=== PATIENT | female | born 1960 | race Caucasian/White ===

== ENCOUNTER 2019-05-22 13:13 | Inpatient (IN) | payer BC, SELFPAY ==
[2019-05-22] VITALS (8 sets, daily range): BP systolic 120–180; BP diastolic 78–95; PULSE 67–74; RESP 16–19; TEMP 36.5–36.6; O2SAT 94–100; BMI 34.3
--- NOTE | 2019-05-22 13:47 | ED_ITS ---
Entered by Jackie Larry, acting as scribe for Bob Recinos DO May 22, 2019 13:13 HPI - Abdominal Pain General: Chief Complaint: Abdominal Pain Stated Complaint: abd pain/N/V Time Seen by Provider: 05/22/19 13:47 Source: patient and family Mode of arrival: ambulatory Limitations: no limitations History of Present Illness: HPI narrative: 58 yo female presents with abdomen pain. pt states this started this morning. pt has had nausea and vomiting. pt states she didnt think she has food poision because her and her daughter ate the same food. pt denies any other symptoms at this time. pt states movement makes this worse and nothing makes the pain better. No hematemesis or coffee-ground emesis MD elicited complaint: abdominal pain Pertinent past history: none Onset (ago): day(s) (this morning) Pain Consistency: constant Location: Epigastric, LUQ and RUQ Severity: moderate Quality: sharp Radiation: none Exacerbating factors: movement Relieving factors: nothing Associated Symptoms: Reports nausea and vomiting; Denies chills, dysuria, fever(s), hematuria and syncope Review of Systems General: Reports: 10 or more systems reviewed and unremarkable except in HPI and below Const: Denies: fever, chills, body aches, fatigue, malaise or night sweats Eyes: Denies: change in vision or blurry vision ENMT: Denies: throat pain, oral sores/lesions, dental pain, nasal discharge or nasal congestion Card: Denies: chest pain, palpitations, irregular heart rhythm, edema, syncope , shortness of breath on exertion, shortness of breath when lying down or leg pain with exertion Resp: Denies: shortness of breath, productive cough, non-productive cough or wheezing GI: Reports: abdominal pain, nausea and vomiting : Denies: flank pain, painful urination, urinary frequency, urinary urgency, urinary incontinence or blood in urine Musc: Denies: neck pain, back pain, extremity pain, extremity swelling, joint pain or joint swelling Skin/Breast: Denies: rash, itching or redness Neuro: Denies: headache, numbness in extremities, weakness in extremities, changes in sensation, lack of coordination, difficulty walking, frequent falls, dizziness, vertigo or confusion Psych: Denies: anxiety, depression, loss of interest, visual hallucinations, auditory hallucinations, suicidal ideation or homicidal ideation Endo: Denies: excessive urination, excessive thirst, tired all the time or cold intolerance Ramon/Lymph: Denies: easy bruising, easy bleeding, petechiae, enlarged lymph nodes or tender lymph nodes PFSH ED PFSH: Medical History (Updated 05/23/19 @ 15:06 by Bob Recinos DO) Hypothyroidism Post-menopause Pre-diabetes Surgical History H/O: hysterectomy History of 2 sections Social History Smoking and tobacco status: never smoked Physical Exam Const: COMMON NORMALS: average body habitus, oriented x3 and alert GENERAL APPEARANCE: cooperative, comfortable, well kempt and well developed NUTRITIONAL APPEARANCE: obese ORIENTATION/CONSCIOUSNESS: Yes awake, Yes oriented to person and Yes oriented to place HENMT: COMMON NORMALS: normocephalic, head/scalp atraumatic, EAC's normal, TM's normal bilaterally, external nose normal, moist oral mucous membranes and oropharynx normal HEAD & SCALP: normocephalic and atraumatic NOSE: external nose normal EXTERNAL AUDITORY CANAL: EAC's normal TYMPANIC MEMBRANE: TM's normal bilaterally MOUTH: oral and palatal mucosa normal, lip normal and tongue normal THROAT: posterior oropharynx normal and tonsils normal Eye: COMMON NORMALS: PERRL, EOMs intact bilaterally, conjunctivae normal and no scleral icterus CONJUNCTIVA: Yes conjunctivae normal PUPIL: Yes PERRL Neck/C-Spine: COMMON NORMALS: full ROM, no lymphadenopathy, supple, no meningeal signs and thyroid normal THYROID: thyroid normal and asymmetrical Lymph: LYMPHATIC: no lymphadenopathy noted Resp: COMMON NORMALS: normal respiratory effort, no retractions, no use of accessory muscles and clear to auscultation bilaterally AUSCULTATION: clear to auscultation bilaterally Cardio: COMMON NORMALS: regular rate and regular rhythm RATE: regular rate RHYTHM: regular rhythm HEART SOUNDS: no murmurs : COMMON NORMALS: Yes no CVA tenderness BLADDER/KIDNEY EXAM: Yes no CVA tenderness Back/Pelvis: COMMON NORMALS: no CVA tenderness LUMBAR SPINE/LOWER BACK: Yes normal to inspection Extremity: COMMON NORMALS: no clubbing, cyanosis or edema, no calf tenderness and no pedal edema Neuro: COMMON NORMALS: oriented x3 SENSORIUM/ORIENTATION: Yes alert, Yes or iented to person and Yes oriented to place MENINGEAL SIGNS: Yes no meningeal signs Psych: APPEARANCE: Yes well kempt Skin: COMMON NORMALS: no rashes or lesions noted and skin turgor normal GENERAL SKIN EXAM: no rashes or lesions noted and turgor normal Course Vital Signs: Vital signs: Vital Signs Temperature 97.4 F L 05/23/19 14:56 Pulse Rate 72 05/23/19 14:56 Respiratory Rate 18 05/23/19 14:56 Blood Pressure 151/88 05/23/19 14:56 Pulse Oximetry 99 05/23/19 14:56 MDM - Abdominal Pain Lab Data: Labs: Lab Results 05/22/19 05/22/19 05/22/19 Range/Units 13:56 14:41 14:47 WBC 7.8 (4.0-10.0) 10^3/ uL RBC 4.66 (4.1-5.3) 10^6/u L Hgb 12.1 (11.5-15.3) g/dL Hct 39.8 (37.0-47.0) % MCV 85.4 (81-99) fL MCH 26.0 L (28.0-34.0) pg MCHC 30.4 (30.0-36.0) g/dL RDW 13.4 (12.1-15.1) % Plt Count 263 (130-400) 10^3/c mm MPV 10.6 H (7.4-10.4) fL Neut % (Auto) 83.0 % Lymph % (Auto) 12.7 % [place] % (Auto) 3.5 % Eos % (Auto) 0.1 % Baso % (Auto) 0.3 % Neut # (Auto) 6.5 (1.8-7.7) 10^3/u L Lymph # (Auto) 1.0 (0.8-4.8) 10^3/u L [place] # (Auto) 0.3 (0.2-0.9) 10^3/u L Eos # (Auto) 0.0 (0.0-0.8) 10^3/u L Baso # (Auto) 0.0 (0.0-0.1) 10^3/u L Nucleated RBC % (a uto) 0 % Nucleated RBCs # 0.0 /100WBC Sodium 138 (136-145) mmol/L Potassium 4.0 (3.5-5.1) mmol/L Chloride 102 (98-107) mmol/L Carbon Dioxide 21 L (22-29) mmol/L Anion Gap 19.0 (5-19) BUN 14 (6-20) mg/dL Creatinine 0.7 (0.5-0.9) mg/dL GFR Calculation 86.2 L (90-130) mL/min Glucose 121 H (65-115) mg/dL Calcium 9.0 (8.5-10.5) mg/dL Total Bilirubin 0.2 (0.15-1.2) mg/dL AST 103 H (0-32) U/L ALT 73 H (0-33) U/L Alkaline Phosphata se 101 (35-105) IU/L Total Protein 6.6 (6.6-8.7) g/dL Albumin 4.2 (3.5-5.2) g/dL Globulin 2.4 (1.3-4.6) g/dL Lipase 3281 H (13-60) U/L Urine Color (Yellow) Urine Appearance (CLEAR) Urine pH (5-7) Ur Specific Gravit y (1.005-1.030) Urine Protein (Negative) Urine Glucose (UA) (Normal) Urine Ketones (Negative) Urine Occult Blood (Negative) Urine Nitrate (Negative) Urine Bilirubin (NEGATIVE) Urine Urobilinogen (Negative) mg/dL Ur Leukocyte Joleen ase (Negative) Urine RBC (0-2) /hpf Urine WBC (0-5) /hpf Ur Squamous Epith Cells (0-5) Urine Bacteria (NONE) Influenza Type A A g Negative (Negative) POC Influenza B Ag Negative (Negative) 05/22/19 Range/Units 16:51 WBC (4.0-10.0) 10^3/ uL RBC (4.1-5.3) 10^6/u L Hgb (11.5-15.3) g/dL Hct (37.0-47.0) % MCV (81-99) fL MCH (28.0-34.0) pg MCHC (30.0-36.0) g/dL RDW (12.1-15.1) % Plt Count (130-400) 10^3/c mm MPV (7.4-10.4) fL Neut % (Auto) % Lymph % (Auto) % [place] % (Auto) % Eos % (Auto) % Baso % (Auto) % Neut # (Auto) (1.8-7.7) 10^3/u L Lymph # (Auto) (0.8-4.8) 10^3/u L [place] # (Auto) (0.2-0.9) 10^3/u L Eos # (Auto) (0.0-0.8) 10^3/u L Baso # (Auto) (0.0-0.1) 10^3/u L Nucleated RBC % (a uto) % Nucleated RBCs # /100WBC Sodium (136-145) mmol/L Potassium (3.5-5.1) mmol/L Chloride (98-107) mmol/L Carbon Dioxide (22-29) mmol/L Anion Gap (5-19) BUN (6-20) mg/dL Creatinine (0.5-0.9) mg/dL GFR Calculation (90-130) mL/min Glucose (65-115) mg/dL Calcium (8.5-10.5) mg/dL Total Bilirubin (0.15-1.2) mg/dL AST (0-32) U/L ALT (0-33) U/L Alkaline Phosphata se (35-105) IU/L Total Protein (6.6-8.7) g/dL Albumin (3.5-5.2) g/dL Globulin (1.3-4.6) g/dL Lipase (13-60) U/L Urine Color Yellow (Yellow) Urine Appearance Cloudy (CLEAR) Urine pH 7 (5-7) Ur Specific Gravit y 1.015 (1.005-1.030) Urine Protein Neg (Negative) Urine Glucose (UA) Norm (Normal) Urine Ketones 1+ H (Negative) Urine Occult Blood Neg (Negative) Urine Nitrate Negative (Negative) Urine Bilirubin Neg (NEGATIVE) Urine Urobilinogen Norm (Negative) mg/dL Ur Leukocyte Joleen ase Negative (Negative) Urine RBC None (0-2) /hpf Urine WBC 55-80 H (0-5) /hpf Ur Squamous Epith Cells 5-10 H (0-5) Urine Bacteria 2+ H (NONE) Influenza Type A A g (Negative) POC Influenza B Ag (Negative) Discharge Plan Discharge Patient Disposition: Admitted As Inpatient Admit Provider: Isabel Allan Clinical Impression: Acute pancreatitis, Hypothyroidism Condition: Stable Interventions: ED Discharge Assessment Last Done: 05/22/19 18:46 Discharge Date/Time: 05/22/19 19:02 Coding Level of Care Code ED Change Room Attendant for Chg Fwd Exam Comprehensive The documentation recorded by the Laron mac Bridget Annette, accurately reflects the service I personally performed and the decisions made by Jorje watt Curtis L, May 22, 2019 13:13
[2019-05-22] MEDS: ondansetron 2 mg/ML SDV 2 mL 4 MG IVP ×2 (14:03→15:25)
[2019-05-22] MEDS: sodium chloride 0.9% 1,000 ML 999 ML IV ×3 (14:03→17:34)
[2019-05-22 14:37] LABS: Basophils % 0.3 %; Eosinophils % 0.1 %; Hematocrit 39.8 % (37.0-47.0); Hemoglobin 12.1 g/dL (11.5-15.3); Lymphocytes % 12.7 %; Mean Corpuscular HGB Conc 30.4 g/dL (30.0-36.0); Mean Corpuscular Volume 85.4 fL (81-99); Mean Platelet Volume 10.6 fL (7.4-10.4); Monocytes # 0.3 10^3/uL (0.2-0.9); Monocytes % 3.5 %; Neutrophils # 6.5 10^3/uL (1.8-7.7); Nucleated Red Blood Cells % 0 %; Platelet Count 263 10^3/cmm (130-400); Red Blood Count 4.66 10^6/uL (4.1-5.3); Red Cell Distribution Width 13.4 % (12.1-15.1); White Blood Count 7.8 10^3/uL (4.0-10.0)
[2019-05-22] MEDS: lidocaine 2% viscous 15 ML, aluminum-mag hydrox-simethicon 30 ML, sucralfate oral liq 1 GM PO (14:57)
[2019-05-22 15:13] LABS: Alanine Aminotransferase 73 U/L (0-33); Albumin Level 4.2 g/dL (3.5-5.2); Alkaline Phosphatase 101 IU/L (35-105); Aspartate Amino Transferase 103 U/L (0-32); Blood Urea Nitrogen 14 mg/dL (6-20); Carbon Dioxide 21 mmol/L (22-29); Chloride 102 mmol/L (98-107); Creatinine Clr Calc Pharmacy 96.7364; Globulin 2.4 g/dL (1.3-4.6); Glomerular Filtration Rate 86.2 mL/min (90-130); Glucose 121 mg/dL (65-115); Sodium 138 mmol/L (136-145); Total Bilirubin 0.2 mg/dL (0.15-1.2); Total Protein 6.6 g/dL (6.6-8.7)
[2019-05-22] MEDS: morphine 4 mg/mL SDV 1 mL IVP ×2 (15:25→18:57)
[2019-05-22 15:26] LABS: Lipase 3281 U/L (13-60)
--- NOTE | 2019-05-22 15:32 | CTR_ITS ---
PROCEDURE INFORMATION: Exam: CT Abdomen And Pelvis With Contrast Exam date and time: 05/22/2019 3:51 PM Age: 58 years old Clinical indication: Abdominal pain; Localized; Upper; Additional info: Abd pain TECHNIQUE: Imaging protocol: Computed tomography of the abdomen and pelvis with intravenous contrast. Total DLP: 1750.06 mGy-cm Radiation optimization: All CT scans at this facility use at least one of these dose optimization techniques: automated exposure control; mA and/or kV adjustment per patient size (includes targeted exams where dose is matched to clinical indication); or iterative reconstruction. Contrast material: OMNIPAQUE 300; Contrast volume: 95 ml; Contrast route: IV; COMPARISON: No relevant prior studies available. FINDINGS: Liver: There is a diffuse decrease in hepatic parenchymal density, consistent with mild fatty infiltration. There is no focal abnormality within the liver. Gallbladder and bile ducts: The gallbladder is normal. Pancreas: There may be some mild haziness in the pancreatic fat and one could not exclude mild pancreatitis. This is not a definite finding and correlation with clinical and laboratory findings is suggested. Spleen: The spleen is normal. Adrenals: The adrenal glands are normal. Kidneys and ureters: The kidneys are normal. There is no evidence of hydronephrosis. There is no evidence of renal or ureteral calcifications. Stomach and bowel: There is no evidence of colitis/diverticulitis. There is no evidence of intestinal obstruction. Appendix: Not identified Intraperitoneal space: There is no evidence of free intraperitoneal fluid. Vasculature: Unremarkable. No abdominal aortic aneurysm. Lymph nodes: Unremarkable. No enlarged lymph nodes. Bladder: Urinary bladder is unremarkable. Reproductive: There has been a hysterectomy. Bones/joints: Unremarkable. No acute fracture. Soft tissues: Unremarkable. Other findings: There may be a Bartholin's gland cyst on the left. This is not fully imaged. CT/CT abdomen pelvis w con* [id number] IMPRESSION: Question of possible mild pancreatitis. Radiation Dose CTDIVOL = (mGy): DLP = 1750.06 (mGy-cm)
[2019-05-22 16:06] LABS: Influenza A by IFA Negative (Negative)
[2019-05-22 16:07] LABS: Influenza B by IFA Negative (Negative)
[2019-05-22] MEDS: iohexol 300 mg/mL 100 mL Btl IV (16:38)
[2019-05-22] MEDS: piperacillin-tazobactam 3.375 GM in sodium chloride 0.9% (plus) 50 ML IV (16:49)
[2019-05-22 17:00] LABS: Add Urine Microscopic? YES; Bilirubin Urine Neg (NEGATIVE); Blood Urine Neg (Negative); Glucose Urine UA Norm (Normal); Ketones Urine 1+ (Negative); Leukocyte Esterase Urine Negative (Negative); Nitrate Urine Negative (Negative); Protein Urine Neg (Negative); Specific Gravity, Urine 1.015 (1.005-1.030); Urine Appearance Cloudy (CLEAR); Urine Color Yellow (Yellow); Urobilinogen Urine Norm (Negative); pH Urine 7 (5-7)
[2019-05-22 17:09] LABS: Bacteria Urine 2+; WBC Urine 55-80 /hpf (0-5)
[2019-05-22 17:11] LABS: Add Urine Culture? Yes
--- NOTE | 2019-05-22 20:23 | XR_ITS ---
WS: [id number] XR chest 1V portable [id number] REASON FOR EXAM: r/o pleural effusion FINDINGS: The cardiac silhouette isn't enlarged. The costophrenic angles were normal. There is no definite effusion seen. The lung cisneros are well aerated. No pneumonia or pulmonary edema. XR/XR chest 1V portable [id number] IMPRESSION: No active cardiopulmonary changes. No definite pleural effusion.
--- NOTE | 2019-05-22 20:28 | P.HP_ITS ---
Providers/Chief Complaint Admitting Physician: Isabel Allan MD Primary Care Provider: Isela Mcgrath Chief Complaint: abd and back pain History of Present Illness Aimee Gale is a 58 year old female with PMH hypothyroidism, menopause on HRT with estrogen, pre DM in her usual state of health until this morning at 2 am when she woke up with severe abdominal pain in the epigastric region along with nausea and vomiting. 9/10 intensity, radiation to back+, no diarrhea. No similar past history. Presented to Ed with above complaints. Diagnostics significant for lipase >[address] abdomen with mild pancreatitis. No h/o alcohol consumption. previously diagnosed with pre DM, started on Metformin, but patient stopped taking one year ago. No h/o dyslipidemia. Consumed shrimp and steak one night prior to admission. Review of Systems General: Reports: 10 or more systems reviewed and unremarkable except in HPI and below Const: Denies: fever, chills or body aches Eyes: Denies: change in vision, blurry vision or photophobia ENMT: Reports: hoarseness; Denies: throat pain, enlarged tonsils, painful swallowing or nasal congestion Card: Denies: chest pain, palpitations, irregular heart rhythm, edema, swelling of feet/ankles, lightheadedness, pre-syncope, shortness of breath on exertion or shortness of breath when lying down Resp: Denies: shortness of breath, productive cough, non-productive cough, wheezing, stridor, pain on inspiration, change in phlegm color, coughing up blood or chest congestion GI: Reports: abdominal pain, nausea and vomiting; Denies: vomiting blood, coffee grounds in vomit, difficulty swallowing, heartburn/indigestion, diarrhea, constipation, cramping, change in stool character, blood in stool or black tarry stool : Denies: flank pain, difficulty urinating, painful urination, urinary frequency, urinary urgency, urinary hesitancy or blood in urine Musc: Denies: neck pain, back pain, extremity pain, joint swelling, joint warmth or deformity Neuro: Denies: headache, numbness in extremities, weakness in extremities, changes in sensation, difficulty walking, frequent falls, dizziness, vertigo, behavioral changes, slurred speech or seizure-like activity Psych: Denies: anxiety, depression, suicidal ideation or homicidal ideation Endo: Denies: excessive urination, excessive thirst, tired all the time, cold intolerance or hot flashes Ramon/Lymph: Denies: easy bruising or easy bleeding Medications/Allergies Home Medications Medication Instructions Recorded Confirmed Last Taken Type Azo Urinary Pain Relief 2 tab PO PRN 05/22/19 05/22/19 05/22/19 History Vitamin D3 1 tab PO DAILY 05/22/19 05/22/19 05/19/19 History cyclobenzaprine 10 mg PO BID PRN 05/22/19 05/22/19 05/22/19 History estradiol 1 mg PO DAILY 05/22/19 05/22/19 05/19/19 History levothyroxine 25 mcg PO DAILY 05/22/19 05/22/19 05/19/19 History Allergies Allergy/AdvReac Type Severity Reaction Status Date / Time acetaminophen [From Percocet] Allergy ALGY-Rash Verified 05/22/19 13:36 oxycodone [From Percocet] Allergy ALGY-Rash Verified 05/22/19 13:36 propoxyphene Allergy ALGY-Rash Verified 05/22/19 13:36 [From Darvocet-N] tramadol Allergy ADR-Itching Verified 05/22/19 13:36 PFSH Acute PFSH: Medical History (Updated 05/22/19 @ 22:39 by Isabel Allan MD) Hypothyroidism Post-menopause Pre-diabetes Surgical History H/O: hysterectomy History of 2 sections Social History Smoking and tobacco status: never smoked Vitals/I&O/Wt Last Vital Signs Temp 97.8 F 05/22/19 13:31 Pulse 74 05/22/19 18:46 Resp 16 05/22/19 18:57 BP 151/81 05/22/19 18:46 Pulse Ox 97 05/22/19 18:46 05/22/19 05/22/19 05/22/19 06:59 14:59 22:59 Intake Total 3050 / 3050 Balance 3050 / 3050 Weight last 48 hrs Weight 90.718 kg Physical Exam Narrative: EXAM NARRATIVE: GEN: Awake, alert and oriented, no acute distress CVS: S1S2 N RS: CTA B/L except crackles over RUL Abd: Soft, nt/nd , bs+ RENEWALS REPRESENTATIVE: no focal neuro deficits Data : 05/22/19 13:56 05/22/19 14:47 A&P Assessment and plan (1) Acute pancreatitis: Status: Acute Code(s): K85.90 - Acute pancreatitis without necrosis or infection, unspecified (2) Hypothyroidism: Status: Acute Code(s): E03.9 - Hypothyroidism, unspecified Additional A&P Information Admit to med/surg in view of pancreatitis IVF NS @ 125cc/hr Bowel rest, NPO Morphine and toradol prn for pain control check serum alcohol level, triglycerides, calcium and TSH to r/o etiology NO GB stones or CBD dilatation on CT abdomen CXR to r/o pleueral effusion Blood culture with am labs No gross signs of infection at this time, therefore holding off on antibiotics UA with 55-80 WBCs but patient denies current urinary symptoms Continue levothyroxine for hypothyroidism PPX: lovenox Code status; Full code Attestations Medical Necessity Statement*: anticipate > 2 midnight for management of pancreatitis Coding Level of Care Code Acute Research Quality Assurance Analyst for [facility] Fwd Diagnoses Acute pancreatitis K85.90 Hypothyroidism E03.9
[2019-05-22] MEDS: enoxaparin 40 mg/0.4 mL Syringe SUBCUT (21:12)
[2019-05-22] MEDS: sodium chloride 0.9% 1,000 ML 100 ML IV (21:13)
[2019-05-23 04:00] VITALS: BP 118/77; PULSE 77; RESP 18; TEMP 36.5; O2SAT 92
[2019-05-23 06:21] LABS: Basophils % 0.4 %; Eosinophils # 0.1 10^3/uL (0.0-0.8); Hematocrit 30.9 % (37.0-47.0); Hemoglobin 9.7 g/dL (11.5-15.3); Lymphocytes % 27.2 %; Mean Corpuscular HGB Conc 31.4 g/dL (30.0-36.0); Mean Corpuscular Volume 82.8 fL (81-99); Mean Platelet Volume 9.6 fL (7.4-10.4); Monocytes # 0.4 10^3/uL (0.2-0.9); Monocytes % 5.7 %; Neutrophils # 4.7 10^3/uL (1.8-7.7); Neutrophils % 65.6 %; Nucleated Red Blood Cells % 0 %; Platelet Count 241 10^3/cmm (130-400); Red Blood Count 3.73 10^6/uL (4.1-5.3); Red Cell Distribution Width 13.8 % (12.1-15.1); White Blood Count 7.2 10^3/uL (4.0-10.0)
[2019-05-23 06:35] LABS: Chol HDL Ratio 3.55 mg/dL (0.0-4.40); Cholesterol 174 mg/dL (0-200); HDL Cholesterol 49 mg/dL (60-100); LDL Cholesterol Calculated 91 mg/dL (50-129); LDL HDL Ratio 1.86 RATIO (0.00-3.22); Triglycerides 170 mg/dL (0-150)
[2019-05-23 06:56] LABS: Estmated Average Glucose 120; Hemoglobin A1C 5.8 % (4.0-6.0)
[2019-05-23 06:58] LABS: Alanine Aminotransferase 51 U/L (0-33); Albumin Level 3.7 g/dL (3.5-5.2); Alkaline Phosphatase 91 IU/L (35-105); Anion Gap 12.9 (5-19); Aspartate Amino Transferase 49 U/L (0-32); Blood Urea Nitrogen 12 mg/dL (6-20); Calcium 8.1 mg/dL (8.5-10.5); Carbon Dioxide 25 mmol/L (22-29); Chloride 107 mmol/L (98-107); Creatinine Clr Calc Pharmacy 96.7364; Glomerular Filtration Rate 86.2 mL/min (90-130); Glucose 106 mg/dL (65-115); Potassium 3.9 mmol/L (3.5-5.1); Sodium 141 mmol/L (136-145); Total Bilirubin 0.2 mg/dL (0.15-1.2); Total Protein 5.7 g/dL (6.6-8.7)
[2019-05-23 07:15] VITALS: BP 129/87; PULSE 73; RESP 20; TEMP 36.4; O2SAT 94
[2019-05-23] MEDS: sodium chloride 0.9% 1,000 ML 150 ML IV ×2 (07:26→13:44)
[2019-05-23] MEDS: ketorolac 30 mg/mL INJ IVP (08:14)
[2019-05-23] MEDS: levothyroxine 25 mcg Tablet PO (08:15)
[2019-05-23 10:51] VITALS: BP 137/85; PULSE 77; RESP 18; TEMP 36.7; O2SAT 92
[2019-05-23 14:31] LABS: Iron 66 ug/dL (37-145); Percent Saturation 28.6 % (20-50); Total Iron Binding Capacity 230 mcg/dl; Unsaturated Iron Binding 164 ug/dL (112-347)
[2019-05-23 14:56] VITALS: BP 151/88; PULSE 72; RESP 18; TEMP 36.3; O2SAT 99
[2019-05-23] MEDS: acetaminophen 325 mg Tablet 650 MG PO (15:18)
--- NOTE | 2019-05-23 18:16 | P.PN_ITS ---
Subjective Subjective: Interval history: This morning on examination patient is doing a lot better. She states her abdominal pain has improved. She denies having any nausea, vomiting, palpitations, chest pain. She states she is feeling hungry. She complains of mild headache which she attributes to caffeine withdrawal as she is used to having 2 to 3 cups of tea every day. She denies of using any herbal tea products. Vitals/I&O/Wt Last Vital Signs Temp 97.4 F L 05/23/19 14:56 Pulse 72 05/23/19 14:56 Resp 18 05/23/19 14:56 BP 151/88 05/23/19 14:56 Pulse Ox 99 05/23/19 14:56 05/23/19 05/23/19 05/23/19 06:59 14:59 22:59 Intake Total 1974 480 / 2455 Output Total 350 / 550 Balance -350 / 2500 1974 480 / 2455 Weight last 48 hrs Weight 90.718 kg Physical Exam Narrative: EXAM NARRATIVE: General: No acute distress, AO x3 HEENT: PERRLA, pupils bilaterally equal and reactive Chest: Normal vesicular breath sounds, no added sounds, equal good air entry bilaterally CVS: S1-S2 regular, no murmurs, no tachycardia, no gallops, no rubs Abdomen: Soft, tender in epigastric region, no organomegaly, bowel sounds present Neuro: No focal deficits, no facial deformity, AO x3, power 5/5 in all limbs Data : 05/23/19 05:23 05/23/19 05:23 Micro: Microbiology 05/23/19 05:23 Blood Culture - Preliminary Blood SPECIMEN COLLECTED 05/23/19 05:29 Blood Culture - Preliminary Blood SPECIMEN COLLECTED A&P Assessment and plan (1) Acute pancreatitis: Status: Acute Code(s): K85.90 - Acute pancreatitis without necrosis or infection, unspecified (2) Hypothyroidism: Status: Acute Code(s): E03.9 - Hypothyroidism, unspecified Additional A&P Information Pancreatitis: Unknown etiology. Continue with fluid at 125 cc/h. As patient symptoms are improving will advance the diet to clear liquid diet for lunch. If tolerates well can advance for full liquid diet. No gallstones or CBD dilation on CT abdomen. Alcohol levels negative, triglycer ides mildly elevated though not as elevated that could cause pancreatitis, calcium levels normal. As etiology is unknown it could be because of a passed gallstone but not really sure for now. We will check [facility]EL[facility] profile. No signs of infection. Hypothyroidism: Continue with home dose of levothyroxine. Will check TSH tomorrow morning. Patient continues to do well can plan to discharge tomorrow morning on bland diet for 1 week to be advanced eventually. PPX: lovenox Code status; Full code Attestations Medical Necessity Statement*: for pancreatitis Time Spent in Patient Care: Greater than 35 minutes Coding Level of Care Code Acute Career And Technology Education Teacher for [facility] Fwd Diagnoses Acute pancreatitis K85.90 Hypothyroidism E03.9
[2019-05-23 19:34] VITALS: BP 148/93; PULSE 66; RESP 22; TEMP 36.6; O2SAT 96
[2019-05-23] MEDS: enoxaparin 40 mg/0.4 mL Syringe SUBCUT (21:14)
[2019-05-23] MEDS: sodium chloride 0.9% 1,000 ML 100 ML IV (21:15)
[2019-05-24] VITALS: BP 141/85; PULSE 80; RESP 20; TEMP 36.4; O2SAT 96
[2019-05-24 04:00] VITALS: BP 141/86; PULSE 78; RESP 18; TEMP 36.7; O2SAT 96
[2019-05-24 07:04] LABS: Basophils % 0.5 %; Eosinophils # 0.1 10^3/uL (0.0-0.8); Eosinophils % 1.8 %; Hematocrit 31.2 % (37.0-47.0); Hemoglobin 9.7 g/dL (11.5-15.3); Lymphocytes # 1.7 10^3/uL (0.8-4.8); Lymphocytes % 29.8 %; Mean Corpuscular HGB Conc 31.1 g/dL (30.0-36.0); Mean Corpuscular Hemoglobin 26.8 pg (28.0-34.0); Mean Corpuscular Volume 86.2 fL (81-99); Mean Platelet Volume 9.5 fL (7.4-10.4); Monocytes # 0.4 10^3/uL (0.2-0.9); Monocytes % 6.6 %; Neutrophils # 3.4 10^3/uL (1.8-7.7); Neutrophils % 60.9 %; Nucleated Red Blood Cells % 0 %; Platelet Count 214 10^3/cmm (130-400); Red Blood Count 3.62 10^6/uL (4.1-5.3); Red Cell Distribution Width 13.5 % (12.1-15.1); White Blood Count 5.6 10^3/uL (4.0-10.0)
[2019-05-24 07:24] LABS: Alanine Aminotransferase 37 U/L (0-33); Albumin Level 3.1 g/dL (3.5-5.2); Alkaline Phosphatase 78 IU/L (35-105); Anion Gap 12.7 (5-19); Aspartate Amino Transferase 28 U/L (0-32); Blood Urea Nitrogen 10 mg/dL (6-20); Carbon Dioxide 24 mmol/L (22-29); Chloride 106 mmol/L (98-107); Creatinine Clr Calc Pharmacy 96.7364; Globulin 2.9 g/dL (1.3-4.6); Glomerular Filtration Rate 86.2 mL/min (90-130); Glucose 105 mg/dL (65-115); Lipase 224 U/L (13-60); Potassium 3.7 mmol/L (3.5-5.1); Sodium 139 mmol/L (136-145); Total Bilirubin 0.2 mg/dL (0.15-1.2)
[2019-05-24 07:43] VITALS: BP 143/85; PULSE 72; RESP 16; TEMP 36.7; O2SAT 98
[2019-05-24] MEDS: levothyroxine 25 mcg Tablet PO (08:03)
[2019-05-24] MEDS: acetaminophen 325 mg Tablet 650 MG PO (08:05)
[2019-05-24 11:19] VITALS: BP 146/92; PULSE 71; RESP 16; TEMP 36.5; O2SAT 96
[2019-05-24 12:40] LABS: Glucose Point of Care 98 mg/dL (70-110)
--- NOTE | 2019-05-24 13:14 | P.DS_ITS ---
Discharge Providers Date of Admission: 05/22/19 17:50 Date of Discharge: May 24, 2019 Attending Provider at Admission: Isabel Allan MD Attending Provider at Discharge: Hipolito Ocampo MD Primary Care Provider: Isela Mcgrath Diagnoses at Discharge Discharge Diagnosis (1) Acute pancreatitis: Status: Acute (2) Hypothyroidism: Status: Acute Reason for Visit Reason for Visit: Reason For Visit: abd and back pain Hospital Course Discharge Summary: Aimee Gale is a 58 year old female with PMH hypothyroidism, menopause on HRT with estrogen, pre DM in her usual state of health until this morning at 2 am when she woke up with severe abdominal pain in the epigastric region along with nausea and vomiting. 9/10 intensity, radiation to back+, no diarrhea. No similar past history. Presented to emergency department on May 22 with above complaints. Diagnostics significant for lipase >[address] abdomen with mild pancreatitis. No h/o alcohol consumption. previously diagnosed with pre DM, started on Metformin, but patient stopped taking one year ago. No h/o dyslipidemia. Consumed shrimp and steak one night prior to admission. Patient was admitted to the floors and started on IV fluids and kept n.p.o. overnight. Her CT abdomen was negative for any severe dilatation or gallbladder stones, alcohol levels are negative, triglycerides are mildly elevated though lipid panel is within normal limits along with calcium being normal as well. Patient's cause of pancreatitis is unknown and ROSANGELA profile has been sent as well though chances are very low. Any chances of infections were ruled out as well with a normal white count, no fever or any infiltration on the imaging. Patient responded well to the treatment and was able to tolerate clear liquid diet for more than 24 hours without any nausea or vomiting. Patient is been discharged in hemodynamically stable condition to follow-up with her primary care physician within next 7 to 10 days. Patient has been advised to advance her diet gradually. Patient is advised to take full liquid diet for next 2 days followed by a bland/brat diet for next 3 to 4 days and advance as tolerated. Physical Exam Narrative: EXAM NARRATIVE: General: No acute distress, AO x3 HEENT: PERRLA, pupils bilaterally equal and reactive Chest: Normal vesicular breath sounds, no added sounds, equal good air entry bilaterally CVS: S1-S2 regular, no murmurs, no tachycardia, no gallops, no rubs Abdomen: Soft, tender in epigastric region, no organomegaly, bowel sounds present Neuro: No focal deficits, no facial deformity, AO x3, power 5/5 in all limbs Discharge Data Data Completed and Pending: Completed Studies During Hospitalization Category Date Time Status CT abdomen pelvis w con* [id number] Stat Cat Scan 05/22/19 15:32 Completed XR chest 1V ellen ble [id number] Routine Exams 05/22/19 20:23 Completed Pending at discharge Category Date Time Status Blood Culture AM LABS Lab 05/23/19 05:23 Results [facility] ROSANGELA Profile R outine Lab 05/23/19 05:23 Received Urine Culture Sta t Lab 05/22/19 16:51 Results Labs from last 24 hours 05/24/19 05/24/19 05/24/19 11:17 06:48 06:48 WBC 5.6 RBC 3.62 L Hgb 9.7 L Hct 31.2 L MCV 86.2 MCH 26.8 L MCHC 31.1 RDW 13.5 Plt Count 214 MPV 9.5 Neut % (Auto) 60.9 Lymph % (Auto) 29.8 [place] % (Auto) 6.6 Eos % (Auto) 1.8 Baso % (Auto) 0.5 Neut # (Auto) 3.4 Lymph # (Auto) 1.7 [place] # (Auto) 0.4 Eos # (Auto) 0.1 Baso # (Auto) 0.0 Nucleated RBC % (a uto) 0 Nucleated RBCs # 0.0 Sodium 139 Potassium 3.7 Chloride 106 Carbon Dioxide 24 Anion Gap 12.7 BUN 10 Creatinine 0.7 GFR Calculation 86.2 L Glucose 105 POC Glucose 98 Calcium 8.0 L Ionized Calcium Me as Iron TIBC % Saturation Unsat Iron Binding Total Bilirubin 0.2 AST 28 ALT 37 H Alkaline Phosphata se 78 Total Protein 6.0 L Albumin 3.1 L Globulin 2.9 Lipase 224 H TSH 05/23/19 05/23/19 06:51 05:23 WBC RBC Hgb Hct MCV MCH MCHC RDW Plt Count MPV Neut % (Auto) Lymph % (Auto) [place] % (Auto) Eos % (Auto) Baso % (Auto) Neut # (Auto) Lymph # (Auto) [place] # (Auto) Eos # (Auto) Baso # (Auto) Nucleated RBC % (a uto) Nucleated RBCs # Sodium Potassium Chloride Carbon Dioxide Anion Gap BUN Creatinine GFR Calculation Glucose POC Glucose Calcium Ionized Calcium Me as 1.0 L Iron 66 TIBC 230 % Saturation 28.6 Unsat Iron Binding 164 Total Bilirubin AST ALT Alkaline Phosphata se Total Protein Albumin Globulin Lipase TSH 1.10 Vitals: Last Vital Signs Temp 97.7 F 05/24/19 11:19 Pulse 71 05/24/19 11:19 Resp 16 05/24/19 11:19 BP 146/92 05/24/19 11:19 Pulse Ox 96 05/24/19 11:19 Discharge Plan Discharge Patient Disposition: Home, Self-Care Condition: Stable Prescriptions: New acetaminophen 325 mg Tablet 650 mg PO Q4H PRN (Reason: Mild Pain Or Increase Temp) Qty: 20 RF: 0 Continued Azo Urinary Pain Relief 2 tab PO PRN RF: 0 cyclobenzaprine 10 mg tablet 10 mg PO BID PRN (Reason: Spasms) RF: 0 levothyroxine 25 mcg tablet 25 mcg PO DAILY RF: 0 estradiol 1 mg tablet 1 mg PO DAILY RF: 0 Vitamin D3 1 tab PO DAILY RF: 0 Discharge Orders: Discharge Order (Routine); Ordered 05/24/19 Ordered By: Hipolito Ocampo Referrals: Hong Bedolla, [employer] [Family Provider] - 2 weeks Discharge Diet: Advance as tolerated Discharge Activity: Resume usual activity Activity Restrictions/Additional Instructions: Full liquid diet for 2 days followed by brat diet for 3 to 4 days and then advance slowly as tolerated. Discharge Attestations Time Spent in Discharge Care*: greater than 30 min Specific Discharge Activities: Specific discharge activities: educating patient and evaluating patient/reviewing data Status at Discharge: Cognitive status at discharge: cognitively intact , Behavioral status at discharge: cooperative , Functional status at discharge: independent ambulation Overall status at discharge: patient is back to baseline Quality Metrics Clinical Quality Measures During this hospital stay, did patient experience: None Coding Level of Care Code Acute [employer] Supervisor for Abdoul Mendez Diagnoses Acute pancreatitis K85.90 Hypothyroidism E03.9
[2019-05-24 13:34] VITALS: BP 146/92; PULSE 71; RESP 16; TEMP 36.5; O2SAT 96
[2019-05-24 13:59] VITALS: BP 146/92; PULSE 71; RESP 16; TEMP 36.5; O2SAT 96
[2019-05-25 14:17] LABS: Anti-Double Strand DNA AB 1 IU/mL; Jo-1 Antibody <1.0 NEG AI (<1.0 NEG); SM/RNP Antibodies <1.0 NEG AI (<1.0 NEG); SS-B/LA IGG <1.0 NEG AI (<1.0 NEG); Scleroderma Ab(Scl-70) Ab <1.0 NEG AI (<1.0 NEG); Ss-A/Ro Igg <1.0 NEG AI (<1.0 NEG)
== END 2019-05-24 13:59 | disposition home or self-care (01) | DRG 440 ==
LOC: ER 13:47 → MEDSURG 18:22
PROVIDERS: Admitting Provider Student in an Organized Health Care Education/Training Program; Emergency Provider Family Medicine; Family Provider Nurse Practitioner Family; PCP Nurse Practitioner Family; Visit Provider Student in an Organized Health Care Education/Training Program
DX: K85.90 Acute pancreatitis without necrosis or infection, unspecified (principal); E03.9 Hypothyroidism, unspecified; Z79.890 Hormone replacement therapy; Z90.710 Acquired absence of both cervix and uterus
CPT/HCPCS: 12345; 36415; 36416; 71045; 74177; 80053; 80061; 81001; 82330; 82962; 83036; 83540; 83550; 83690; 84443; 85025; 86225; 86235; 87040; 87077; 87086; 87186; 87804; 96360; 96361; 96372; 96375; 99283; J1650; J1885; J2270; J2405; J2543; J7030; Q9967

== ENCOUNTER → 2019-05-27 11:56 | Outpatient (BNVA) | payer BC, SELFPAY | PROVIDERS: Family Provider Nurse Practitioner Family; PCP Nurse Practitioner Family; Visit Provider Nurse Practitioner Family | DX: D64.9 Anemia, unspecified (principal); K21.9 Gastro-esophageal reflux disease without esophagitis; J06.9 Acute upper respiratory infection, unspecified; J01.90 Acute sinusitis, unspecified | CPT/HCPCS: 80053; 81001; 82728; 85025 ==

== ENCOUNTER → 2019-05-31 11:44 | Outpatient (BNVA) | payer BC, SELFPAY | PROVIDERS: Family Provider Nurse Practitioner Family; PCP Nurse Practitioner Family; Visit Provider Nurse Practitioner Family | DX: D64.9 Anemia, unspecified (principal); K21.9 Gastro-esophageal reflux disease without esophagitis; J06.9 Acute upper respiratory infection, unspecified; J01.90 Acute sinusitis, unspecified; Z09 Encounter for follow-up examination after completed treatment for conditions other than malignant neoplasm; J01.40 Acute pansinusitis, unspecified; E03.9 Hypothyroidism, unspecified; Z79.899 Other long term (current) drug therapy | CPT/HCPCS: 82270 ==

== ENCOUNTER 2019-09-03 06:47 | Outpatient (CLI) | payer BC, SELFPAY ==
--- NOTE | 2019-09-03 06:59 | US_ITS ---
WS: [id number] RIGHT UPPER QUADRANT ULTRASOUND HISTORY: RUQ PAIN, S/P pancreatitis COMPARISON: None available. Liver: 16.9 cm in length. Liver is top normal size with mild hepatic steatosis. Coarsened echotexture with no mass or biliary dilatation. Gallbladder: Normally distended gallbladder with several stones. No pericholecystic fluid. No gallbla dder wall thickening. CBD: 0.3 cm Pancreas: Normal size and echogenicity. Right kidney: 10.8 cm in length. Normal echogenicity with no mass or hydronephrosis. Aorta and IVC: Unremarkable. No ascites. US/US abdomen limited [id number] IMPRESSION: 1. Cholelithiasis without acute cholecystitis. 2. Hepatic steatosis and hepatomegaly. 3. No evidence for acute pancreatitis.
== END 2019-09-03 06:48 | disposition home or self-care (01) ==
PROVIDERS: PCP Nurse Practitioner Family; Visit Provider Surgery
DX: R10.11 Right upper quadrant pain (principal); K80.20 Calculus of gallbladder without cholecystitis without obstruction; K76.0 Fatty (change of) liver, not elsewhere classified; R16.0 Hepatomegaly, not elsewhere classified
CPT/HCPCS: 76705

== ENCOUNTER 2019-09-16 06:00 | Day surgery (SDC) | payer BC, SELFPAY ==
[2019-09-15 13:47] VITALS: BMI 34.3
[2019-09-16] VITALS (10 sets, daily range): BP systolic 121–149; BP diastolic 67–91; PULSE 57–72; RESP 13–18; TEMP 36.1–36.6; O2SAT 94–99
[2019-09-16] MEDS: sodium chloride 0.9% 1,000 ML 30 ML IV (06:30)
--- NOTE | 2019-09-16 06:43 | W.PM.OPSUD ---
Surgery/Procedure H&P Update DATE OF PROCEDURE: September 16, 2019 DATE H&P PERFORMED: 09/07/19 H&P UPDATE INFORMATION: No changes to prior documentation PLANNED PROCEDURE: Operation Date: 09/16/19 07:15 Proposed Procedures p Laparoscopic Cholecystectomy(Not Applicable) - Presley Peck MD
--- NOTE | 2019-09-16 06:45 | ANES.PREANE2 ---
Pre-Anesthetic Assessment Pre-Anesthetic Assessment: Height/Weight: Height 1.63 m Weight 90.718 kg Temp Pulse Resp BP Pulse Ox 97.9 F 72 18 149/91 97 09/16/19 06:15 09/16/19 06:15 09/16/19 06:15 09/16/19 06:15 09/16/19 06:15 Preop Diagnosis: gallstones Proposed Procedure: Operation Date: 09/16/19 07:15 Proposed Procedures p Laparoscopic Cholecystectomy(Not Applicable) - Presley Peck MD Familial anesthetic complications: None Was Beta Sophia taken within 24 hours: N/A Last intake: Intake Last Liquid Date 09/15/19 Last Liquid Time 20:00 Last Solid Date 09/15/19 Last Solid Time 20:00 Social: Social History: No alcohol and No tobacco Exam: Pre-Anes Outpt Exam: alert, oriented x 3, clear to auscultation bilaterally and regular rate & rhythm Airway: Cervical ROM: WNL MP: 3 Dentition: Full Pulmonary: Pulmonary: None reported CV/HEM: CV/HEM: None reported : : None reported Hepatic: Hepatic: None reported GI: GI: GERD Comments: Hx of acute pancreatitis Metabolic: Metabolic: Morbid obesity and Thyroid Comments: Pre DM Musc/skel: Musc/skel: None reported Neuropsych: Neuropsych: None reported Anesthetic Plan: ASA status: 2 Anesthesia: General Risk of > 500 ml blood loss (7ml/kg in children): No Meds/Allergies Current Medications: Current Medications Generic Name Dose Route Start Last Admin Trade Name Freq PRN Reason Stop Dose Admin Sodium Chloride 1,000 mls @ 30 ml s/hr 09/16/19 06:00 09/16/19 06:30 Sodium Chloride 0.9% IV 09/17/19 05:59 30 mls/hr .Q24H WESTLEY Administration PFSH Anesthesia PFSH: Medical History (Updated 06/07/19 @ 10:44 by JAY JAY Hernandez) GERD (gastroesophageal reflux disease) H/O adenomatous polyp of colon Hypothyroidism Post-menopause Pre-diabetes Surgical History H/O: hysterectomy History of 2 sections Social History Smoking and tobacco status: never smoked Data Anesthesia Cardiac Studies: No Data to Display
[2019-09-16 06:56] LABS: Alanine Aminotransferase 13 U/L (0-33); Alkaline Phosphatase 67 IU/L (35-105); Aspartate Amino Transferase 16 U/L (0-32); Total Bilirubin 0.3 mg/dL (0.15-1.2)
--- NOTE | 2019-09-16 08:24 | P.OP_ITS ---
Operative Report Date of procedure: September 16, 2019 Pre-op Diagnosis: 1. Symptomatic cholelithiasis.2. Status post episode of pancreatitis. Post-op diagnosis: same Procedure Done: Laparoscopic cholecystectomy. Specimens removed/disposition: Gallbladder with contents. Surgeon: Presley Peck Anesthesia: General Estimated blood loss (mL): 10 Complications: None. Condition: stable Disposition: PACU Procedure: The patient was brought to the Operating Room and was placed in a supine position on the Operating Room table. General endotracheal anesthesia was induced. The abdomen was prepped and draped in a sterile fashion. A small vertical incision was carried out in the inferior aspect of the umbilicus. Blunt dissection was carried out down to the fascia, which was grasped with a Damien clamp. A stay suture of 0 Vicryl was placed on either side of the midline and the midline fascia was incised. The underlying peritoneum was opened bluntly and the Luci port was placed directly into the peritoneal cavity and was held in place with the inflatable balloon. The peritoneal cavity was insufflated with carbon dioxide. The laparoscope was used to inspect the abdominal cavity. The patient had some omental adhesions just below the umbilicus and slightly to the left side. No other gross abnormalities were initially noted. A 5 millimeter port was placed in the epigastrium under direct vision. Two 5-millimeter ports were placed on the right side of the abdomen under direct vision. The gallbladder was grasped and was elevated. The patient had adhesions along the entire fundus of the gallbladder down to and involving the infundibular region. These were all taken down with blunt dissection with a minimum of cautery to maintain hemostasis. Blunt dissection and hydrodissection were carried out in the infundibular region of the gallbladder and the cystic duct and cystic artery were identified. The gallbladder was partially removed from the liver bed using cautery and the spatula to confirm the anatomy before the structures were clipped and divided. The gallbladder was then removed from the liver bed using cautery and the spatula. After the gallbladder had been removed from the liver bed, the laparoscope was moved to the epigastric port and the gallbladder was removed from the peritoneal cavity through the umbilical port site. Upon removal of the gallbladder, however, the fundus ruptured and multiple gallstones fell into the peritoneal cavity onto the omentum. Using a combination of the 5 and 10 mm suction tips, all of the gallstones were retrieved. The stay sutures of Vicryl were tied to each other at the umbilicus. An additional [id number] suture of 0 Vicryl was placed, closing the defect so that it was airtight. The perihepatic spaces were irrigated with saline and the liver bed was reinspected. No ongoing problems and no additional gallstones were seen. The remaining ports were removed from the abdominal wall and the pneumoper itoneum was evacuated. All skin incisions were closed using inverted interrupted sutures of 4-0 Vicryl. Benzoin and Steri-Strips were placed over the incisions and Band-Aids followed. The patient was taken to the Recovery Area in stable condition postoperatively.
[2019-09-16] MEDS: ondansetron 2 mg/ML SDV 2 mL 4 MG IVP ×2 (08:44→08:50)
[2019-09-16] MEDS: metoclopramide 5 mg/mL SDV 2 mL 10 MG IVP ×2 (08:55→09:01)
[2019-09-16] MEDS: HYDROcodone-acetaminophen 5-325 mg Tablet 1 TAB PO (09:22)
== END 2019-09-16 10:00 | disposition home or self-care (01) ==
PROVIDERS: PCP Nurse Practitioner Family; Visit Provider Surgery
PROC: 0FT44ZZ Resection of Gallbladder, Percutaneous Endoscopic Approach (ICD-10-PCS; CPT 47562; principal; 2019-09-16 07:15)
DX: K80.10 Calculus of gallbladder with chronic cholecystitis without obstruction (principal); K85.90 Acute pancreatitis without necrosis or infection, unspecified; K21.9 Gastro-esophageal reflux disease without esophagitis; E66.01 Morbid (severe) obesity due to excess calories; Z68.34 Body mass index [BMI] 34.0-34.9, adult; R73.03 Prediabetes; E03.9 Hypothyroidism, unspecified; Z86.14 Personal history of Methicillin resistant Staphylococcus aureus infection; Z86.010 Personal history of colon polyps
CPT/HCPCS: 47562; 12345; 80076; 88304; J0690; J1100; J2001; J2405; J2704; J2765; J3010; J3490; J7030

== ENCOUNTER 2019-10-15 09:50 | Outpatient (CLI) | payer BC, SELFPAY ==
--- NOTE | 2019-10-15 10:03 | MM_ITS ---
WS: [id number] BILATERAL DIGITAL SCREENING MAMMOGRAPHY WITH CAD CLINICAL INFORMATION: SCREENING HISTORY: Screening mammogram. No current complaints. COMPARISON: August 26, 2018 TECHNIQUE: Bilateral CC and MLO views. FINDINGS: Scattered fibroglandular densities bilaterally. No suspicious focal mass, asymmetry, calcifications, or architectural distortion. No evidence of malignancy. MM/[place] [id number] IMPRESSION: BI-RADS: 1-Negative FOLLOW UP: 1 Year Follow-up Recommend return to annual screening mammography.
== END 2019-10-15 09:51 | disposition home or self-care (01) ==
LOC: RADSHAW 10:02
PROVIDERS: PCP Nurse Practitioner Family; Visit Provider Nurse Practitioner Family
DX: Z12.31 Encounter for screening mammogram for malignant neoplasm of breast (principal)
CPT/HCPCS: 77067

== ENCOUNTER → 2020-02-03 17:08 | Outpatient (BNVA) | payer BC, SELFPAY | PROVIDERS: PCP Nurse Practitioner Family; Visit Provider Nurse Practitioner Family | DX: E03.9 Hypothyroidism, unspecified (principal); E55.9 Vitamin D deficiency, unspecified; E78.2 Mixed hyperlipidemia; Z79.899 Other long term (current) drug therapy; L60.9 Nail disorder, unspecified; L03.90 Cellulitis, unspecified; B37.3 Candidiasis of vulva and vagina | CPT/HCPCS: 36415; 80053; 80061; 81003; 82306; 83036; 84443; 85025 ==

== ENCOUNTER → 2021-02-08 09:45 | Outpatient (BNVA) | payer BC, SELFPAY | PROVIDERS: PCP Nurse Practitioner Family; Visit Provider Nurse Practitioner Family | DX: Z00.00 Encounter for general adult medical examination without abnormal findings (principal); E03.9 Hypothyroidism, unspecified; D64.9 Anemia, unspecified; E78.2 Mixed hyperlipidemia; E55.9 Vitamin D deficiency, unspecified; Z79.899 Other long term (current) drug therapy | CPT/HCPCS: 80053; 80061; 81003; 82306; 82607; 82746; 83036; 83550; 84443; 85025 ==

== ENCOUNTER → 2021-04-25 10:19 | Outpatient (BNVA) | payer BC, SELFPAY | PROVIDERS: PCP Nurse Practitioner Family; Visit Provider Nurse Practitioner Family | DX: R68.89 Other general symptoms and signs (principal) | CPT/HCPCS: 87400; 87635 ==